=== PATIENT | female | born 1940 | race Caucasian/White ===

== ENCOUNTER 2020-03-21 07:38 | Outpatient (CLI) | payer MEDICARE, BC, SELFPAY ==
[2020-03-21 08:08] LABS: Hemoglobin 13.4 g/dL (11.5-15.3); Mean Corpuscular HGB Conc 31.2 g/dL (30.0-36.0); Mean Corpuscular Hemoglobin 26.9 pg (28.0-34.0); Mean Corpuscular Volume 86.2 fL (81-99); Mean Platelet Volume 10.7 fL (7.4-10.4); Platelet Count 231 10^3/cmm (130-400); Red Blood Count 4.99 10^6/uL (4.1-5.3); Red Cell Distribution Width 13.7 % (12.1-15.1); White Blood Count 4.5 10^3/uL (4.0-10.0)
[2020-03-21 08:46] LABS: Alanine Aminotransferase 18 U/L (0-33); Albumin Level 4.9 g/dL (3.5-5.2); Alkaline Phosphatase 72 IU/L (35-105); Anion Gap 13.1 (5-19); Aspartate Amino Transferase 30 U/L (0-32); Blood Urea Nitrogen 10 mg/dL (8-23); Calcium 10.1 mg/dL (8.5-10.5); Carbon Dioxide 27 mmol/L (22-29); Chloride 106 mmol/L (98-107); Chol HDL Ratio 2.69 mg/dL (0.0-4.40); Cholesterol 159 mg/dL (0-200); Globulin 2.3 g/dL (1.3-4.6); Glucose 100 mg/dL (65-115); HDL Cholesterol 59 mg/dL (60-100); LDL Cholesterol Calculated 81 mg/dL (50-129); Osmolality Calculated 290 mOsm/kg (285-295); Potassium 4.1 mmol/L (3.5-5.1); Sodium 142 mmol/L (136-145); Total Bilirubin 0.3 mg/dL (0.15-1.2); Total Protein 7.2 g/dL (6.6-8.7); Triglycerides 94 mg/dL (0-150); VLDL Cholestrol Calculation 19 mg/dL (0-30)
[2020-03-21 08:52] LABS: Absolute Neutrophil 2.3 10^3/cmm (1.4-6.5); Absolute Segmented Neutrophil 1.8 10/cmm (1.6-7.1); Band Neutrophils Absolute 0.5 10^3/cmm (0.0-1.2); Eosinophils 1 %; Lymphocytes 40 %; Monocytes Absolute 0.3 10^3/cmm (0.1-0.6); Platelet Estimate Normal (Normal); Segmented Neutrophils 41 %; Total Cells Counted 100 (0-100)
== END 2020-03-21 07:39 | disposition home or self-care (01) ==
LOC: LAB 07:44
PROVIDERS: PCP Family Medicine; Visit Provider Family Medicine
DX: E78.00 Pure hypercholesterolemia, unspecified (principal)
CPT/HCPCS: 36415; 80053; 80061; 84443; 85007; 85027

== ENCOUNTER 2020-04-21 15:23 | Outpatient (CLI) | payer MEDICARE, BC, SELFPAY ==
--- NOTE | 2020-04-21 | XR_ITS ---
WS: [id number] SCREENING DEXA SCAN [employer] CLINICAL INFORMATION: ASYMPTOMATIC MENOPAUSAL STATE COMPARISON: 018 FINDINGS: The L1-L4 bone mineral density measures 1.254 g/cm2. This corresponds to a T score score of 0.6 and Z score of 2.2. Left femoral neck bone mineral density measures 0.891. This corresponds to a T score of -0.9 and Z sc ore of 0.9. Left forearm bone mineral density 0.743 with a T score of -1.5 and a Z score 1.2 XR/XR DEXA axial skeleton* 29115 IMPRESSION: Osteopenia in the left forearm. Patient's FRAX calculated 10 year probability for major osteoporotic fracture i s 16.3 % and osteoporotic hip fracture is 4.0%.
== END 2020-04-21 15:24 | disposition home or self-care (01) ==
LOC: RADWPI 15:28
PROVIDERS: Family Provider Family Medicine; PCP Family Medicine; Visit Provider Family Medicine
DX: Z78.0 Asymptomatic menopausal state (principal); M85.832 Other specified disorders of bone density and structure, left forearm
CPT/HCPCS: 77080

== ENCOUNTER → 2020-04-23 14:31 | Outpatient (BNVA) | payer MEDICARE, BC, SELFPAY | PROVIDERS: Family Provider Family Medicine; PCP Family Medicine; Visit Provider Urology | DX: N30.20 Other chronic cystitis without hematuria (principal); N39.41 Urge incontinence | CPT/HCPCS: 81001 ==

== ENCOUNTER → 2020-12-24 12:42 | Outpatient (BNVA) | payer MEDICARE, BC, SELFPAY | PROVIDERS: Family Provider Family Medicine; PCP Family Medicine; Visit Provider Nurse Practitioner Family | DX: N30.20 Other chronic cystitis without hematuria (principal) | CPT/HCPCS: 81003 ==

== ENCOUNTER 2021-04-01 08:39 | Outpatient (CLI) | payer MEDICARE, BC, SELFPAY ==
[2021-04-01 09:30] LABS: Basophils # 0.1 10^3/uL (0.0-0.1); Basophils % 1.4 %; Eosinophils # 0.1 10^3/uL (0.0-0.8); Eosinophils % 2.2 %; Hemoglobin 13.3 g/dL (11.5-15.3); Lymphocytes # 1.2 10^3/uL (0.8-4.8); Lymphocytes % 33.4 %; Mean Corpuscular HGB Conc 30.9 g/dL (30.0-36.0); Mean Corpuscular Hemoglobin 26.4 pg (28.0-34.0); Mean Corpuscular Volume 85.5 fL (81-99); Mean Platelet Volume 10.9 fL (7.4-10.4); Monocytes # 0.3 10^3/uL (0.2-0.9); Monocytes % 9.3 %; Neutrophils # 1.95 10^3/uL (1.8-7.7); Neutrophils % 53.4 %; Nucleated Red Blood Cells % 0 %; Platelet Count 236 10^3/cmm (130-400); Red Blood Count 5.03 10^6/uL (4.1-5.3); Red Cell Distribution Width 13.8 % (12.1-15.1); White Blood Count 3.7 10^3/uL (4.0-10.0)
[2021-04-01 10:01] LABS: Alanine Aminotransferase 20 U/L (0-33); Albumin Level 4.6 g/dL (3.5-5.2); Alkaline Phosphatase 95 IU/L (35-105); Aspartate Amino Transferase 31 U/L (0-32); Blood Urea Nitrogen 9 mg/dL (8-23); Calcium 9.8 mg/dL (8.5-10.5); Carbon Dioxide 26 mmol/L (22-29); Chloride 108 mmol/L (98-107); Chol HDL Ratio 2.44 mg/dL (0.0-4.40); Cholesterol 151 mg/dL (0-200); Globulin 2.1 g/dL (1.3-4.6); Glucose 98 mg/dL (65-115); HDL Cholesterol 62 mg/dL (60-100); LDL Cholesterol Calculated 76 mg/dL (50-129); LDL HDL Ratio 1.23 RATIO (0.00-3.22); Osmolality Calculated 295 mOsm/kg (285-295); Sodium 143 mmol/L (136-145); Thyroid Stimulating Hormone 0.67 uIU/mL (0.27-4.20); Total Bilirubin 0.2 mg/dL (0.15-1.2); Total Protein 6.7 g/dL (6.6-8.7); Triglycerides 67 mg/dL (0-150)
== END 2021-04-01 08:40 | disposition home or self-care (01) ==
LOC: LAB 08:52
PROVIDERS: PCP Family Medicine; Visit Provider Family Medicine
DX: E78.00 Pure hypercholesterolemia, unspecified (principal); E03.9 Hypothyroidism, unspecified
CPT/HCPCS: 36415; 80053; 80061; 84443; 85025

== ENCOUNTER → 2021-05-22 10:02 | Outpatient (BNVA) | payer MEDICARE, BC, SELFPAY | PROVIDERS: PCP Family Medicine; Visit Provider Surgery | DX: Z01.812 Encounter for preprocedural laboratory examination (principal); Z20.822 Contact with and (suspected) exposure to COVID-19 | CPT/HCPCS: 87635 ==

== ENCOUNTER 2021-05-28 05:54 | Day surgery (SDC) | payer MEDICARE, BC, SELFPAY ==
[2021-05-27 12:11] VITALS: BMI 27.1
[2021-05-28] VITALS (11 sets, daily range): BP systolic 126–162; BP diastolic 58–89; PULSE 67–80; RESP 16–18; TEMP 36.7–36.8; O2SAT 94–97
[2021-05-28] MEDS: sodium chloride 0.9% 1,000 ML 30 ML IV (06:29)
--- NOTE | 2021-05-28 06:34 | ANES.PREANE2 ---
Pre-Anesthetic Assessment Pre-Anesthetic Assessment: Height/Weight: Height 1.63 m Weight 71.668 kg Temp Pulse Resp BP Pulse Ox 98.2 F 70 16 138/65 97 05/28/21 06:22 05/28/21 06:22 05/28/21 06:22 05/28/21 06:22 05/28/21 06:22 Preop Diagnosis: hernia Proposed Procedure: Operation Date: 05/28/21 07:15 Proposed Procedures p right Inguinal Hernia Repair w/ Mesh [id number] k40.90(Right) - Harshad Ramirez MD Familial anesthetic complications: ponv Was Beta Dayna taken within 24 hours: N/A Was Clonidine taken within 24 hours: N/A Last intake: Intake Last Liquid Date 05/27/21 Last Liquid Time 19:30 Last Solid Date 05/27/21 Last Solid Time 18:30 Social: Social History: No alcohol and No tobacco Comment: former smoker Exam: Pre-Anes Outpt Exam: alert, oriented x 3, clear to auscultation bilaterally and regular rate & rhythm Airway: Cervical ROM: WNL MP: 2 Dentition: False Metabolic: Metabolic: Hyperlipidemia and Thyroid Musc/skel: Musc/skel: OA/DJD Anesthetic Plan: ASA status: 2 Anesthesia: General Risk of > 500 ml blood loss (7ml/kg in children): No Meds/Allergies Current Medications: Current Medications Generic Name Dose Route Start Last Admin Trade Name Freq PRN Reason Stop Dose Admin Sodium Chloride 1,000 mls @ 30 ml s/hr 05/28/21 06:15 05/28/21 06:29 Sodium Chloride 0.9% IV 05/29/21 06:14 30 mls/hr .Q24H MARNI Administration PFSH Anesthesia PFSH: Medical History Chronic cystitis Urgency incontinence Surgical History H/O cataract extraction H/O dilation and curettage H/O knee surgery H/O shoulder surgery H/O: hysterectomy History of right hip replacement Hx of bladder repair surgery S/P appendectomy S/P cholecystectomy S/P tonsillectomy Family History Family/Other Adopted Mother , at age 26 Bowel obstruction Father No problems noted. Social History Smoking and tobacco status: former smoker Alcohol intake: current Alcohol intake frequency: holidays/special occasions only Alcohol type: wine Adopted: No Caregiver/support person: No Lives independently: Yes Marital status: / Current occupational status: retired History of recent travel: No Current gender identity: Female Data Anesthesia Cardiac Studies: No Data to Display
[2021-05-28] MEDS: scopolamine 1.5 Patch 1 PATCH TRANSDERMA (06:36)
--- NOTE | 2021-05-28 06:46 | W.PM.OPSUD ---
Surgery/Procedure H&P Update DATE OF PROCEDURE: May 28, 2021 DATE H&P PERFORMED: 05/05/21 H&P UPDATE INFORMATION: No changes to prior documentation PREOP DIAGNOSIS: Right inguinal hernia PLANNED PROCEDURE: Operation Date: 05/28/21 07:15 Proposed Procedures p right Inguinal Hernia Repair w/ Mesh [id number] k40.90(Right) - Harshad Ramirez MD
--- NOTE | 2021-05-28 07:46 | PM.OP ---
Operative Report Date of procedure: May 28, 2021 Pre-op Diagnosis: Right inguinal hernia. Post-op Diagnosis: Right indirect inguinal hernia. Procedure Done: Repair of right inguinal hernia with mesh. Pathology: none sent Surgeon: Harshad Ramirez Anesthesia: MAC Estimated blood loss (mL): 5 Complications: None. Condition: stable Disposition: same day Procedure: The patient was brought to the operating room and was placed in a supine position on the operating room table. A monitored anesthetic was induced. The right inguinal region was prepped and draped in a sterile fashion. A combination of 1% lidocaine and 0.5% bupivacaine with 1-200,000 parts epinephrine was used for local anesthesia throughout the procedure. A transverse incision was carried out above the level of the pubic tubercle. Cautery was used to divide the subcutaneous tissue down to the external oblique aponeurosis which was incised in parallel with its fibers over the inguinal canal. An indirect hernia was identified that had obliterated almost the entire inguinal canal floor all the way down to the tubercle. The hernia sac and contents were carefully freed from the surrounding tissue and the hernia sac was reduced. An extra-large mesh plug was used to hold the hernia sac in a reduced position and was held in place with a sutures of 0 Prolene that were used to connect the conjoined area medially to the reflecting edge of Poupart's ligament laterally all the way down to the tubercle, essentially recreating the inguinal canal floor. The onlay patch was anchored at the tubercle with a suture of 0 Prolene and was laid along the new inguinal canal floor. The external oblique aponeurosis was closed over the top of the mesh using a running suture of 3-0 Vicryl. The wound was irrigated with saline. The subcutaneous tissue was brought together with a simple suture of 3-0 Vicryl and the skin was approximated using a running subcuticular suture of 3-0 Vicryl. Benzoin and Steri-Strips were placed over the incision and a sterile bandage followed. The patient was taken to the recovery area in stable condition postoperatively.
[2021-05-28] MEDS: HYDROcodone-acetaminophen 5-325 mg Tablet 1 TAB PO (08:43)
--- NOTE | 2021-05-28 13:39 | ANE.PACU2 ---
Inpatient post-anesthesia follow up: Airway intact: Yes Vital signs: Temperature 98.1 F Pulse Rate 72 Respiratory Rate 18 Blood Pressure 151/68 Pulse Oximetry 94 Oxygen Delivery Me thod Room Air Oxygen Flow Rate Fraction of Inspir ed Oxygen Hydration adequate: Yes Nausea and vomiting: No Pain level: 2 Mental status: Baseline
== END 2021-05-28 09:13 | disposition home or self-care (01) ==
PROVIDERS: PCP Family Medicine; Visit Provider Surgery
PROC: (CPT 49505; principal; 2021-05-28 07:15)
DX: K40.90 Unilateral inguinal hernia, without obstruction or gangrene, not specified as recurrent (principal); E78.5 Hyperlipidemia, unspecified; Z87.891 Personal history of nicotine dependence; Z79.82 Long term (current) use of aspirin
CPT/HCPCS: 49505; J0690; J2405; J2704; J3010; J3490; J7030

== ENCOUNTER → 2021-06-24 14:43 | Outpatient (BNVA) | payer MEDICARE, BC, SELFPAY | PROVIDERS: PCP Family Medicine; Visit Provider Nurse Practitioner Family | DX: N30.20 Other chronic cystitis without hematuria (principal) | CPT/HCPCS: 81003; 87086 ==

== ENCOUNTER → 2021-07-16 13:25 | Outpatient (BNVA) | payer MEDICARE, BC, SELFPAY | PROVIDERS: PCP Family Medicine; Visit Provider Nurse Practitioner Family | DX: N30.20 Other chronic cystitis without hematuria (principal); N39.41 Urge incontinence | CPT/HCPCS: 81003 ==

== ENCOUNTER → 2021-08-06 13:18 | Outpatient (BNVA) | payer MEDICARE, BC, SELFPAY | PROVIDERS: PCP Family Medicine; Visit Provider Nurse Practitioner Family | DX: N30.20 Other chronic cystitis without hematuria (principal) | CPT/HCPCS: 81003 ==

== ENCOUNTER → 2021-12-17 12:35 | Outpatient (BNVA) | payer MEDICARE, BC, SELFPAY | PROVIDERS: PCP Family Medicine; Visit Provider Urology | DX: N30.20 Other chronic cystitis without hematuria (principal); N39.41 Urge incontinence | CPT/HCPCS: 81003 ==

== ENCOUNTER 2022-01-05 14:19 | Outpatient (CLI) | payer MEDICARE, BC, SELFPAY ==
--- NOTE | 2022-01-05 14:28 | MM_ITS ---
WS: [id number] VIEWS: MLO and CC views both breasts. 3D digital tomosynthesis is also included in this exam. Comparison made with prior exam of 01/12/2016. Findings: There was no sign of mass, architectural distortion or suspicious calcification in either breast. He terogeneously dense MM/[place] [id number] Impression: BI-RADS: 2-Benign FOLLOW-UP: 1 Year Follow-up This mammogram was also analyzed by the Computer Aided Detection System [employer]2 [employer]ag [employer].
== END 2022-01-05 14:20 | disposition home or self-care (01) ==
LOC: RADSHAW 14:24
PROVIDERS: PCP Family Medicine; Visit Provider Family Medicine
DX: Z12.31 Encounter for screening mammogram for malignant neoplasm of breast (principal)
CPT/HCPCS: 77063; 77067

== ENCOUNTER 2022-04-02 07:29 | Outpatient (CLI) | payer MEDICARE, BC, SELFPAY ==
[2022-04-02 07:45] LABS: Basophils # 0.1 10^3/uL (0.0-0.1); Eosinophils # 0.1 10^3/uL (0.0-0.8); Eosinophils % 2.1 %; Hematocrit 41.7 % (37.0-47.0); Hemoglobin 13.7 g/dL (11.5-15.3); Lymphocytes % 41.3 %; Mean Corpuscular HGB Conc 32.9 g/dL (30.0-36.0); Mean Corpuscular Hemoglobin 27.3 pg (28.0-34.0); Mean Corpuscular Volume 83.1 fl (81-99); Mean Platelet Volume 10.6 fL (7.4-10.4); Monocytes # 0.4 10^3/uL (0.2-0.9); Monocytes % 8.6 %; Neutrophils # 2.23 10^3/uL (1.8-7.7); Neutrophils % 46.8 %; Nucleated Red Blood Cells % 0 %; Platelet Count 235 10^3/cmm (130-400); Red Blood Count 5.02 10^6/uL (4.1-5.3); Red Cell Distribution Width 13.8 % (12.1-15.1); White Blood Count 4.8 10^3/uL (4.0-10.0)
[2022-04-02 08:17] LABS: Alanine Aminotransferase 20 U/L (0-33); Albumin Level 4.6 g/dL (3.5-5.2); Alkaline Phosphatase 85 IU/L (35-105); Anion Gap 14.1 (5-19); Aspartate Amino Transferase 28 U/L (0-32); Blood Urea Nitrogen 15 mg/dL (8-23); Calcium 9.3 mg/dL (8.5-10.5); Carbon Dioxide 25 mmol/L (22-29); Chloride 106 mmol/L (98-107); Chol HDL Ratio 2.77 mg/dL (0.0-4.40); Cholesterol 155 mg/dL (0-200); Globulin 2.5 g/dL (1.3-4.6); Glucose 94 mg/dL (65-115); HDL Cholesterol 56 mg/dL (60-100); LDL Cholesterol Calculated 76 mg/dL (50-129); Osmolality Calculated 293 mOsm/kg (285-295); Potassium 4.1 mmol/L (3.5-5.1); Sodium 141 mmol/L (136-145); Thyroid Stimulating Hormone 1.06 uIU/mL (0.27-4.20); Total Bilirubin 0.3 mg/dL (0.15-1.2); Total Protein 7.1 g/dL (6.6-8.7); Triglycerides 114 mg/dL (0-150); VLDL Cholestrol Calculation 23 mg/dL (0-30)
== END 2022-04-02 07:30 | disposition home or self-care (01) ==
LOC: LAB 07:32
PROVIDERS: PCP Family Medicine; Visit Provider Family Medicine
DX: E03.9 Hypothyroidism, unspecified (principal); D64.9 Anemia, unspecified; E78.00 Pure hypercholesterolemia, unspecified
CPT/HCPCS: 36415; 80053; 80061; 84443; 85025

== ENCOUNTER 2022-05-31 13:05 | Outpatient (CLI) | payer MEDICARE, BC, SELFPAY ==
--- NOTE | 2022-05-31 13:30 | XR_ITS ---
WS: [id number] DEXA (DUAL ENERGY X-RAY ABSORPTIOMETRY) Bone mineral density was performed using a [employer] machine. HISTORY: ASYMPTOMATIC MENOPAUSAL STATE COMPARISON: 04/21/2020 Lumbar spine BMD (L1-L4): 1.173 g/cm2 T score: -0.1 Z score: 1.6 Total hip BMD: Left: 0.852 (g/cm2). T score: -1.2 Z score: 0.7 Left forearm BMD: 0.662 g/cm2. T score: -2.4 Z score: 0.4 Reverse S-shaped scoliosis lumbar spine. 10 year probability of a major osteoporotic fracture is 19%. Compared to the prior study from 04/21/2020. Lumbar spine bone mineral density has decreased by 6.5%. LEFT hip bone mineral density has decreased by 4.4%. LEFT forearm bone mineral density has decreased by 10.9%. XR/XR DEXA axial skeleton* [id number] IMPRESSION: OSTEOPENIA based upon the WHO classification for females. Significant decrease in bone mineral density within the lumbar spine, LEFT hip and LEFT forearm since the prior study.
== END 2022-05-31 13:06 | disposition home or self-care (01) ==
LOC: RAD 13:06
PROVIDERS: PCP Family Medicine; Visit Provider Family Medicine
DX: Z78.0 Asymptomatic menopausal state (principal); M85.80 Other specified disorders of bone density and structure, unspecified site
CPT/HCPCS: 77080

== ENCOUNTER → 2022-06-30 09:52 | Outpatient (BNVA) | payer MEDICARE, BC, SELFPAY | PROVIDERS: PCP Family Medicine; Visit Provider Specialist | DX: M25.562 Pain in left knee (principal); M25.552 Pain in left hip; G89.29 Other chronic pain | CPT/HCPCS: 73502; 99213 ==

== ENCOUNTER 2022-09-07 08:09 | Outpatient (CLI) | payer MEDICARE, BC, SELFPAY ==
--- NOTE | 2022-09-07 09:30 | NM_ITS ---
WS: [id number] NUCLEAR MEDICINE BONE SCAN 3 PHASE Radiopharmaceutical: 22.5 Tc-99m MDP mCi IV Injection site: LEFT antecubital Postinjection imaging delay: 3 hr CLINICAL INFORMATION: left knee pain COMPARISON: Radiographs September 07, 2022 FINDINGS: Prior postoperative changes RIGHT REJI. Bilateral total knee arthroplasties. Prior RIGHT rev ersed shoulder arthroplasty. Lumbar curve convex LEFT. Normal blood flow and blood pool activity LEFT knee. Small amount of increased blood flow and blood p ool periprosthetic activity RIGHT knee. Small amount of increased periprosthetic activity about both TKAs on the delayed bone images in a symmetric fashion. No evidence of osteomyelitis. Degenerative type uptake involving the LEFT greater than RIGHT AC joints. NM/NM bone 3 phase [id number] IMPRESSION: 1. No evidence of osteomyelitis or significant loosening LEFT knee. 2. Small amount of nonspecific increased periprosthetic blood flow and blood p ool activity RIGHT knee with normal delayed imaging likely due to bony remodeli ng from prior TKA. 3. No other remarkable findings.
--- NOTE | 2022-09-07 11:41 | XR_ITS ---
WS: [id number] XR knee LT 3V* [id number] REASON FOR EXAM: BONE SCAN COMPARISON FINDINGS: Nonweightbearing. Total left knee arthroplasty. Relative lucency underlying the medial table of the tibial component anteriorly. Similar lucency seen adjacent to the medial aspect of the femoral component anteriorly. These findings appear unchanged c ompared to 08/20/2019. No fracture or periosteal reaction. XR/XR knee LT 3V* [id number] IMPRESSION: Stable appearing total left knee arthroplasty as above.
--- NOTE | 2022-09-07 11:41 | XR_ITS ---
WS: [id number] XR knee RT 3V* [id number] REASON FOR EXAM: BONE SCAN COMPARISON FINDINGS: Nonweightbearing. Total right knee arthroplasty. Small areas of lucency in the femoral condyles adjacent to the femoral prosthetic component. Similar finding is underlying the medial and lateral table of the tibial component. No change in these findin gs compared to the previous examination of 08/20/2019. No fracture or periosteal reaction. XR/XR knee RT 3V* [id number] IMPRESSION: Stable appearing total right knee arthroplasty.
== END 2022-09-07 08:10 | disposition home or self-care (01) ==
LOC: RAD 08:09
PROVIDERS: PCP Family Medicine; Visit Provider Specialist
DX: M25.562 Pain in left knee (principal); Z98.890 Other specified postprocedural states; Z96.653 Presence of artificial knee joint, bilateral
CPT/HCPCS: 73562; 78315; A9561

== ENCOUNTER 2022-09-13 12:14 | Emergency (ER) | payer MEDICARE, BC, SELFPAY ==
[2022-09-13 12:26] VITALS: BP 182/102; PULSE 100; RESP 16; TEMP 36.4; O2SAT 98
--- NOTE | 2022-09-13 14:26 | PC.NURSE ---
WHILE WITH PT IN [facility]OBBY PT IS IN NAD.
[2022-09-13 14:27] VITALS: PULSE 83; O2SAT 99
[2022-09-13 16:25] VITALS: BP 182/102; PULSE 83; RESP 16; TEMP 36.4; O2SAT 99
[2022-09-13 16:32] LABS: Basophils # 0.1 10^3/uL (0.0-0.1); Eosinophils # 0.2 10^3/uL (0.0-0.8); Eosinophils % 2.8 %; Hematocrit 40.7 % (37.0-47.0); Hemoglobin 13.2 g/dL (11.5-15.3); Lymphocytes # 2.1 10^3/uL (0.8-4.8); Lymphocytes % 25.9 %; Mean Corpuscular HGB Conc 32.4 g/dL (30.0-36.0); Mean Corpuscular Hemoglobin 27.4 pg (28.0-34.0); Mean Corpuscular Volume 84.4 fl (81-99); Mean Platelet Volume 10.4 fL (7.4-10.4); Monocytes # 0.5 10^3/uL (0.2-0.9); Monocytes % 6.4 %; Neutrophils # 5.18 10^3/uL (1.8-7.7); Neutrophils % 63.5 %; Nucleated Red Blood Cells % 0 %; Platelet Count 273 10^3/cmm (130-400); Red Blood Count 4.82 10^6/uL (4.1-5.3); Red Cell Distribution Width 13.3 % (12.1-15.1); White Blood Count 8.2 10^3/uL (4.0-10.0)
--- NOTE | 2022-09-13 16:34 | W.ED.GENADLT ---
HPI - General Adult General: Chief complaint: General Medical Stated complaint: Prolapse is getting biger and bleeding Time Seen by Provider: 09/13/22 15:59 Source: patient Mode of arrival: ambulatory History of Present Illness: 82-year-old female presents emergency room with complaint of rectal prolapse she states being becoming more more problem some states its bleeding and she has been unable to manage it is causing more severe pain. She has been seen by colorectal surgery in [place] and then referred from there to [place] she has a follow-up appointment later this week in [place]. She had problems with constipation and started taking milk of magnesia relieved that this is progressively worsened. She called the doctor's office it was a told to go to the emergency room she was unable to tolerate symptoms. Onset (ago): day(s) Location: pelvis (Rectum) Severity: moderate Relieving factors: none Exacerbating factors: none Associated symptoms: Deny chest pain, confusion, cough, diaphoresis, decreased appetite, dyspnea, fevers/chills, headache(s), malaise, nausea, rash, palpitations, seizures, short of breath, syncope, vomiting or weakness Treatments prior to arrival: none Review of Systems Const: Denies: fever(s), chills, malaise or diaphoresis ENMT: Denies: throat pain, ear or mastoid pain, nasal discharge or nasal congestion Card: Denies: chest pain, palpitations or syncope Resp: Denies: dyspnea GI: Reports: constipation, GI cramping and hematochezia; Denies: abdominal pain, nausea, vomiting, diarrhea or bloating : Denies: flank pain, difficulty voiding, dysuria, urinary frequency or urinary urgency Skin/Breast: Denies: rash or pruritus Neuro: Denies: headache(s) or confusion PFSH ED PFSH: Medical History Chronic cystitis Rectocele Urgency incontinence Surgical History H/O cataract extraction H/O dilation and curettage H/O knee surgery H/O shoulder surgery H/O: hysterectomy History of bilateral knee replacement History of right hip replacement Hx of bladder repair surgery S/P appendectomy S/P cholecystectomy S/P tonsillectomy S/P vaginal hysterectomy Family History Family/Other Adopted Mother , at age 26 Bowel obstruction Father No problems noted. Social History Smoking and tobacco status: former smoker Alcohol intake: current Alcohol intake frequency: holidays/special occasions only Alcohol type: wine Adopted: No Caregiver/support person: No Lives independently: Yes Marital status: / Current occupational status: retired History of recent travel: No Current gender identity: Female Physical Exam Const: GENERAL APPEARANCE: cooperative and comfortable ORIENTATION/CONSCIOUSNESS: Yes awake, Yes oriented to person, Yes oriented to place and Yes oriented to time HENMT: COMMON NORMALS: normocephalic, atraumatic and hearing grossly normal bilaterally HEAD & SCALP: normocephalic and atraumatic Resp: COMMON NORMALS: normal respiratory effort, No retractions, No use of accessory muscles and clear to auscultation bilaterally AUSCULTATION: clear to auscultation bilaterally Cardio: COMMON NORMALS: regular rate, regular rhythm and No murmurs present (Cardio) RATE: regular rate RHYTHM: regular rhythm GI: COMMON NORMALS: Soft to palpation and No hepatosplenomegaly present AUSCULTATION: Yes normoactive bowel sounds PALPATION: Yes Soft to palpation, No Tenderness to palpation present (GI), No Guarding due to palpation present (GI) and Yes No hepatosplenomegaly present Extremity: COMMON NORMALS: normal to inspection, capillary refill normal, no clubbing, cyanosis or edema, no calf tenderness and no pedal edema Neuro: SENSORIUM/ORIENTATION: Yes oriented to person, Yes oriented to place and Yes oriented to time Skin: COMMON NORMALS: no rashes or lesions noted GENERAL SKIN EXAM: no rashes or lesions noted Course Vital Signs: Vital signs: Vital Signs Temperature 97.6 F 09/13/22 16:25 Pulse Rate 83 09/13/22 16:25 Respiratory Rate 16 09/13/22 16:25 Blood Pressure 182/102 09/13/22 16:25 Pulse Oximetry 99 09/13/22 16:25 Oxygen Delivery Me thod 09/13/22 16:25 MDM - General Adult Medical Decision Making On exam there is no active prolapse. She states he gets worse when she stands up. She has been aggressively trying to clean the prolapse recommend against that she could use sitz bath's which would be helpful and comforting. She can apply a topical emollient such as Vaseline if she is unable to reduce it. Recommend against her using milk of magnesia every day instead go to using MiraLAX daily as part of a bowel regimen program. Should keep her appointment in [place] with colorectal surgery as planned or an upcoming appointment is a consultation. At this point she does not have anything that would require emergent transfer there is no evidence of ischemia and is not actively bleeding. Medical Records I reviewed the patient's medical records. Lab Data I reviewed the patient's lab results. 09/13/22 16:20 09/13/22 16:20 Laboratory Results WBC 8.2 10^3/uL (4.0-10.0) 09/13/22 16:20 RBC 4.82 10^6/uL (4.1-5.3) 09/13/22 16:20 Hgb 13.2 g/dL (11.5-15.3) 09/13/22 16:20 Hct 40.7 % (37.0-47.0) 09/13/22 16:20 MCV 84.4 fl (81-99) 09/13/22 16:20 MCH 27.4 pg (28.0-34.0) L 09/13/22 16:20 MCHC 32.4 g/dL (30.0-36.0) 09/13/22 16:20 RDW 13.3 % (12.1-15.1) 09/13/22 16:20 Plt Count 273 10^3/cmm (130-400) 09/13/22 16:20 MPV 10.4 fL (7.4-10.4) 09/13/22 16:20 Neut % (Auto) 63.5 % 09/13/22 16:20 Lymph % (Auto) 25.9 % 09/13/22 16:20 Hanson % (Auto) 6.4 % 09/13/22 16:20 Eos % (Auto) 2.8 % 09/13/22 16:20 Baso % (Auto) 1.0 % 09/13/22 16:20 Neut # (Auto) 5.18 10^3/uL (1.8-7.7) 09/13/22 16:20 Lymph # (Auto) 2.1 10^3/uL (0.8-4.8) 09/13/22 16:20 Hanson # (Auto) 0.5 10^3/uL (0.2-0.9) 09/13/22 16:20 Eos # (Auto) 0.2 10^3/uL (0.0-0.8) 09/13/22 16:20 Baso # (Auto) 0.1 10^3/uL (0.0-0.1) 09/13/22 16:20 Nucleated RBC % (auto) 0 % 09/13/22 16:20 Nucleated RBCs # 0.0 /100WBC 09/13/22 16:20 Discharge Plan Discharge Patient Disposition: Home Clinical Impression: Rectal prolapse Condition: Stable Prescriptions: No Action clobetasol 0.05 % ointment 1 applic topical BID PRN (Reason: Itching) Rx Instructions: to affected area on back no more than 3 wks/mo prn itching duloxetine 60 mg capsule,delayed release(DR/EC) 60 mg PO DAILY naproxen 500 mg tablet,delayed release (DR/EC) 500 mg PO BID topiramate [Topamax] 50 mg tablet 50 mg PO BID lovastatin 40 mg tablet 40 mg PO BEDTIME furosemide 20 mg tablet 20 mg PO DAILY docusate sodium [Stool Softener] 100 mg capsule 100 mg PO BID cod liver oil Capsule 1 cap PO DAILY prenat.vits,alejandrina,[id number] Tablet 1 tab PO DAILY cholecalciferol (vitamin D3) 2,000 unit tablet 2,000 unit PO DAILY aspirin [Adult Low Dose Aspirin] 81 mg tablet,delayed release (DR/EC) 81 mg PO DAILY biotin 1 mg capsule 1 mg PO TID ascorbic acid (vitamin C) 500 mg capsule 1,000 mg PO DAILY levothyroxine [Euthyrox] 125 mcg Tablet 125 mcg PO DAILY amlodipine 5 mg tablet 5 mg PO DAILY Milk of Magnesia 400 mg/5 mL Suspension 30 ml PO DAILY PRN (Reason: Constipation) Calcium 500 500 mg calcium (1,250 mg) Tablet 500 mg PO DAILY cephalexin 500 mg capsule 500 mg PO TID PRN (Reason: UTI) Preparation H Suppository 1 supp MD DAILY PRN (Reason: Hemorrhoids) fluticasone propionate 50 mcg/actuation spray,suspension 2 spray INTRANASAL DAILY PRN (Reason: Allergy Symptoms) Discharge Orders: Discharge ED (Routine); Ordered 09/13/22 Ordered By: Cortez Clark Referrals: Estefany Manzano MD [Primary Care Provider] - Discharge Diet: As Directed Discharge Activity: Resume usual activity Patient Instructions: Opioid Safety, Pain Management Activity Restrictions/Additional Instructions: You were seen today for rectal prolapse/rectocele. It was not displaced ischemic or unreducible at the time you are seen there is no active bleeding your hemoglobin and white count were normal recommend to follow-up with [facility] as planned. Also recommend that you use MiraLAX regularly instead of using daily doses of milk of magnesia. Coding Level of Care Code ED Bone Char Puller for Chg Fwd Exam Detailed
[2022-09-13 17:16] LABS: Add Urine Microscopic? YES; Bilirubin Urine Neg (Negative); Blood Urine Neg (Negative); Glucose Urine UA Norm (Normal); Ketones Urine 1+ (Negative); Leukocyte Esterase Urine Trace (Negative); Nitrate Urine Negative (Negative); Protein Urine Neg (Negative); Specific Gravity, Urine 1.015 (1.005-1.030); Urine Appearance Clear (CLEAR); Urine Color Yellow (Yellow); Urobilinogen Urine Norm (Negative); pH Urine 6 (5-7)
[2022-09-13 17:17] LABS: Add Urine Culture? No; Bacteria Urine TRACE /hpf; RBC Urine 0-4 /hpf (0-2); Squamous Epithelial Cell Urine 0-4 /hpf (0-5); WBC Urine 0-4 /hpf (0-5)
[2022-09-13 17:40] LABS: Alanine Aminotransferase 15 U/L (0-33); Alkaline Phosphatase 79 U/L (35-105); Anion Gap 15.3 (5-19); Aspartate Amino Transferase 25 U/L (0-32); Blood Urea Nitrogen 12 mg/dL (8-23); Calcium 9.6 mg/dL (8.5-10.5); Carbon Dioxide 23 mmol/L (22-29); Chloride 99 mmol/L (98-107); Creatinine Clr Calc Pharmacy 57.4585; Globulin 2.9 g/dL (1.3-4.6); Glucose 99 mg/dL (65-115); Osmolality Calculated 278 mOsm/kg (285-295); Potassium 3.3 mmol/L (3.5-5.1); Sodium 134 mmol/L (136-145); Total Bilirubin 0.3 mg/dL (0.15-1.2); Total Protein 6.9 g/dL (6.6-8.7)
== END 2022-09-13 17:20 | disposition home or self-care (01) ==
PROVIDERS: Emergency Provider Family Medicine; PCP Family Medicine
DX: K62.3 Rectal prolapse (principal); Z79.82 Long term (current) use of aspirin; Z87.891 Personal history of nicotine dependence
CPT/HCPCS: 80053; 81001; 85025; 99283

== ENCOUNTER 2022-09-23 11:26 | Emergency (ER) | payer MEDICARE, BC, SELFPAY ==
[2022-09-23] VITALS (84 sets, daily range): BP systolic 108–172; BP diastolic 53–102; PULSE 86–105; RESP 16–23; TEMP 36.5; O2SAT 83–100; BMI 28.9
--- NOTE | 2022-09-23 11:30 | W.ED.GENADLT ---
HPI - General Adult General: Chief complaint: GI Bleed Stated complaint: rectal bleeding Time Seen by Provider: 09/23/22 11:30 History of Present Illness: Ms. Palmer is an 82-year-old lady with history of pelvic floor failure and rectal prolapse presenting to the emergency department due to recurrent prolapse with bleeding. She was seen recently in the emergency department and transition from Milk of Magnesia to MiraLAX. Since that time she has noted some more liquid stool. She has had more frequent bowel movements and this morning reports prolapse and blood identified on wet wipes and toilet paper when cleaning herself. This is similar to prior episodes. She denies associated abdominal pain or other changes in health. Intensity symptoms mild to moderate. Course has persisted intermittently. No other specific changes in health, exacerbating, or alleviating factors identified. Apparently her appointment with [facility] is not until the of this month. Onset (ago): hour(s) Location: genitals Severity: mild Pain Consistency: intermittent Exacerbating factors: other Review of Systems General: Reports: 10 or more systems reviewed and unremarkable except in HPI and below PFSH ED PFSH: Medical History Chronic cystitis Rectocele Urgency incontinence Surgical History H/O cataract extraction H/O dilation and curettage H/O knee surgery H/O shoulder surgery H/O: hysterectomy History of bilateral knee replacement History of right hip replacement Hx of bladder repair surgery S/P appendectomy S/P cholecystectomy S/P tonsillectomy S/P vaginal hysterectomy Family History Family/Other Adopted Mother , at age 26 Bowel obstruction Father No problems noted. Social History Smoking and tobacco status: former smoker Alcohol intake: current Alcohol intake frequency: holidays/special occasions only Alcohol type: wine Adopted: No Caregiver/support person: No Lives independently: Yes Marital status: / Current occupational status: retired History of recent travel: No Current gender identity: Female Physical Exam Const: COMMON NORMALS: alert GENERAL APPEARANCE: cooperative and well developed HENMT: COMMON NORMALS: normocephalic and atraumatic HEAD & SCALP: normocephalic and atraumatic Eye: COMMON NORMALS: conjunctivae normal CONJUNCTIVA: Yes conjunctivae normal SCLERA: sclerae normal Neck/C-Spine: COMMON NORMALS: supple GENERAL: Yes trachea midline Resp: COMMON NORMALS: normal respiratory effort EFFORT & INSPECTION: Yes able to speak in complete sentences Cardio: COMMON NORMALS: regular rate and regular rhythm RATE: regular rate RHYTHM: regular rhythm GI: COMMON NORMALS: Soft to palpation PALPATION: Yes Soft to palpation and No Tenderness to palpation present (GI) OTHER: Rectal exam performed with director of parks and recreation present. There is no evidence of rectal prolapse, scant amount of dark stool and scant amount of dried blood on brief. No abnormality other than lax muscle tone on rectal exam. No mariangel blood on glove or active bleeding identified. Extremity: GENERAL: Yes normal exam except as noted and No edema Neuro: COMMON NORMALS: moves all extremities SENSORIUM/ORIENTATION: Yes alert and No Orientation impaired Psych: COMMON NORMALS: mental status grossly normal and Normal thought process present THOUGHT PROCESS: Normal thought process present Course Vital Signs: Vital signs: Vital Signs Temperature 97.7 F 09/23/22 11:28 Pulse Rate 86 09/23/22 18:38 Respiratory Rate 16 09/23/22 18:38 Blood Pressure 162/75 09/23/22 18:38 Pulse Oximetry 95 09/23/22 18:38 Oxygen Delivery Me thod 09/23/22 11:28 [facility] - General Adult Medical Decision Making 82-year-old lady with history of known rectal prolapse presenting due to recurrent prolapse with bleeding. Patient has exam as above with no prolapse identified on rectal exam. No active bleeding identified either. Labs notable for normal hemoglobin, lactic acid is normal. CT abdomen pelvis likely shows intussusception. Findings discussed with patient surgical team in [place] and there is no dictation for transfer at this time. Patient's been able to ambulate without recurrence of prolapse and has had normal bowel movements without additional bleeding during ED care. Plan to continue outpatient follow-up for rectal prolapse requiring multidisciplinary team for surgical repair. The results of ED evaluation were discussed with the patient including prescriptions and/or symptomatic cares (if applicable) including appropriate and responsible use, followup plan, and return precautions. The patient verbalized understanding and felt safe for discharge. Medical Records I reviewed the patient's medical records. Lab Data I reviewed the patient's lab results. 09/23/22 11:30 Radiology Impressions Abdomen/Pelvis CT 09/23/22 11:46 IMPRESSION: 1. Diffuse thickening of the rectum extending to the rectoanal junction with soft tissue thickening most compatible with rectal prolapse. Recommend interval follow-up with sigmoidoscopy or colonoscopy to exclude intraluminal or lesion mass. 2. No evidence of high-grade obstruction. Mild LEFT colon and sigmoid colon constipation. 3. No free air or drainable fluid collections. 4. Prior cholecystectomy and hysterectomy. 5. No other acute findings Notified Luis A Bach MD at 09/23/2022 1:08 PM. Laboratory Results WBC 6.7 10^3/uL (4.0-10.0) 09/23/22 14:39 Corrected WBC Cancelled 09/23/22 12:15 RBC 5.03 10^6/uL (4.1-5.3) 09/23/22 14:39 Hgb 13.5 g/dL (11.5-15.3) 09/23/22 14:39 Hct 42.2 % (37.0-47.0) 09/23/22 14:39 MCV 83.9 fl (81-99) 09/23/22 14:39 MCH 26.8 pg (28.0-34.0) L 09/23/22 14:39 MCHC 32.0 g/dL (30.0-36.0) 09/23/22 14:39 RDW 13.4 % (12.1-15.1) 09/23/22 14:39 Plt Count 279 10^3/cmm (130-400) 09/23/22 14:39 MPV 10.6 fL (7.4-10.4) H 09/23/22 14:39 Gran % Cancelled 09/23/22 12:15 Neut % (Auto) 63.6 % 09/23/22 14:39 Lymph % (Auto) 25.5 % 09/23/22 14:39 [place] % (Auto) 6.4 % 09/23/22 14:39 Eos % (Auto) 3.1 % 09/23/22 14:39 Baso % (Auto) 1.3 % 09/23/22 14:39 Neut # (Auto) 4.25 10^3/uL (1.8-7.7) 09/23/22 14:39 Lymph # (Auto) 1.7 10^3/uL (0.8-4.8) 09/23/22 14:39 [place] # (Auto) 0.4 10^3/uL (0.2-0.9) 09/23/22 14:39 Eos # (Auto) 0.2 10^3/uL (0.0-0.8) 09/23/22 14:39 Baso # (Auto) 0.1 10^3/uL (0.0-0.1) 09/23/22 14:39 Absolute Gran (auto) Cancelled 09/23/22 12:15 Nucleated RBC % (auto) 0 % 09/23/22 14:39 Nucleated RBCs # 0.0 /100WBC 09/23/22 14:39 Lactic Acid 1.2 mmol/L (0.5-2.2) 09/23/22 14:39 Discharge Plan Discharge Patient Disposition: Home Clinical Impression: Rectal prolapse Condition: Stable Prescriptions: No Action clobetasol 0.05 % ointment 1 applic topical BID PRN (Reason: Itching) Rx Instructions: to affected area on back no more than 3 wks/mo prn itching duloxetine 60 mg capsule,delayed release(DR/EC) 60 mg PO DAILY naproxen 500 mg tablet,delayed release (DR/EC) 500 mg PO BID topiramate [Topamax] 50 mg tablet 50 mg PO BID lovastatin 40 mg tablet 40 mg PO BEDTIME furosemide 20 mg tablet 20 mg PO DAILY docusate sodium [Stool Softener] 100 mg capsule 100 mg PO BID cod liver oil Capsule 1 cap PO DAILY prenat.vits,alejandrina,qgk-wheo-qygim Tablet 1 tab PO DAILY cholecalciferol (vitamin D3) 2,000 unit tablet 2,000 unit PO DAILY aspirin [Adult Low Dose Aspirin] 81 mg tablet,delayed release (DR/EC) 81 mg PO DAILY biotin 1 mg capsule 1 mg PO TID ascorbic acid (vitamin C) 500 mg capsule 1,000 mg PO DAILY levothyroxine [Euthyrox] 125 mcg Tablet 125 mcg PO DAILY amlodipine 5 mg tablet 5 mg PO DAILY magnesium hydroxide [Milk of Magnesia] 400 mg/5 mL Suspension 30 ml PO DAILY PRN (Reason: Constipation) calcium carbonate [Calcium 500] 500 mg calcium (1,250 mg) Tablet 500 mg PO DAILY cephalexin 500 mg capsule 500 mg PO TID PRN (Reason: UTI) fluticasone propionate 50 mcg/actuation spray,suspension 2 spray INTRANASAL DAILY PRN (Reason: Allergy Symptoms) losartan 25 mg Tablet 25 mg PO DAILY Miralax 17 gram/dose Powder 17 g PO DAILY Discharge Orders: Discharge ED (Routine); Ordered 09/23/22 Ordered By: Luis A Bach Referrals: Estefany Manzano MD [Primary Care Provider] - Discharge Diet: Usual diet Discharge Activity: Increase activity as tolerated Patient Instructions: Rectal Prolapse (ED) Activity Restrictions/Additional Instructions: Thank you for visiting the emergency department. You were seen and evaluated for rectal prolapse. Based on ED evaluation and in discussion with the colorectal surgery team at [facility] you do not require inpatient management or transfer. Please continue your medication regimen and previously prescribed treatments. Please follow-up with your [facility] appointments as scheduled. Return to the emergency department for anything that you are concerned about a feel needs emergency department evaluation Coding Level of Care Code ED Mixing Engineer for Chg Fwd Exam Comprehensive
--- NOTE | 2022-09-23 11:46 | CT_ITS ---
WS: [id number] CT ABDOMEN PELVIS TECHNIQUE: Contrast-enhanced CT of the abdomen and pelvis with coronal and sagittal reformatted image s. CLINICAL INFORMATION: GI bleed, reccurrent ?rectal prolapse COMPARISON: None. DLP: 444.[address] scans at [facility] use at least one of these dose optimization techniques: automated e xposure control; mA and/or kV adjustment per patient size (includes targeted exams where dose is matc hed to clinical indication); or iterative reconstruction. FINDINGS: Diffuse soft tissue thickening involving the rectum and rectoanal junction likely due to rectal prola pse considering patient history. Associated submucosal enhancement with thickening of the rectum whic h appears prolapsed into the anal junction. No evidence of free air or drainable fluid collection. No evidence of high-grade obstruction. Recommend follow-up with sigmoidoscopy or colonoscopy to exclude intraluminal mass. Lung bases are well aerated. Mild diffuse fatty infiltration liver. Normal spleen. Normal GE junction . Normal pancreatic parenchymal enhancement. Prior cholecystectomy. Prominent common bile duct likel y physiologic postcholecystectomy measuring 7 mm. Normal caliber abdominal aorta. Mild aortic calcifi cation. Celiac and SMA are patent. Adrenal glands are normal. Normal renal parenchymal enhancement. N o hydronephrosis. Small LEFT renal cyst. Prior postoperative changes RIGHT REJI degrades images in the pelvis. Lumbar scoliosis. Mild sigmoid a nd LEFT colon constipation. No evidence of high-grade obstruction. Small amount of incidental fluid a long the RIGHT inguinal canal. Tiny fat-containing umbilical hernia. Disc space narrowing throughout the lumbar spine. CT/CT abdomen pelvis w con* [id number] IMPRESSION: 1. Diffuse thickening of the rectum extending to the rectoanal junction with s oft tissue thickening most compatible with rectal prolapse. Recommend interval follow-up with sigmoidoscopy or colonoscopy to exclude intraluminal or lesion m ass. 2. No evidence of high-grade obstruction. Mild LEFT colon and sigmoid colon co nstipation. 3. No free air or drainable fluid collections. 4. Prior cholecystectomy and hysterectomy. 5. No other acute findings Notified Luis A Bach MD at 09/23/2022 1:08 PM.
[2022-09-23 12:00] LABS: Hematocrit 44.7 % (37.0-47.0); Hemoglobin 13.7 g/dL (11.5-15.3)
[2022-09-23] MEDS: iohexol 350 mg/mL 500 mL Btl (per mL) IV (12:34)
[2022-09-23 14:46] LABS: Basophils # 0.1 10^3/uL (0.0-0.1); Basophils % 1.3 %; Eosinophils # 0.2 10^3/uL (0.0-0.8); Eosinophils % 3.1 %; Hematocrit 42.2 % (37.0-47.0); Hemoglobin 13.5 g/dL (11.5-15.3); Lymphocytes # 1.7 10^3/uL (0.8-4.8); Lymphocytes % 25.5 %; Mean Corpuscular Hemoglobin 26.8 pg (28.0-34.0); Mean Corpuscular Volume 83.9 fl (81-99); Mean Platelet Volume 10.6 fL (7.4-10.4); Monocytes # 0.4 10^3/uL (0.2-0.9); Monocytes % 6.4 %; Neutrophils # 4.25 10^3/uL (1.8-7.7); Neutrophils % 63.6 %; Nucleated Red Blood Cells % 0 %; Platelet Count 279 10^3/cmm (130-400); Red Blood Count 5.03 10^6/uL (4.1-5.3); Red Cell Distribution Width 13.4 % (12.1-15.1); White Blood Count 6.7 10^3/uL (4.0-10.0)
[2022-09-23 15:06] LABS: Lactic Sepsis W/Reflex 1.2 mmol/L (0.5-2.2)
== END 2022-09-23 18:41 | disposition home or self-care (01) ==
PROVIDERS: Emergency Provider Emergency Medicine; PCP Family Medicine
DX: K62.3 Rectal prolapse (principal); Z79.82 Long term (current) use of aspirin; Z87.891 Personal history of nicotine dependence
CPT/HCPCS: 36415; 74177; 83605; 85014; 85018; 85025; 99285; Q9967

== ENCOUNTER → 2022-12-16 12:41 | Outpatient (BNVA) | payer MEDICARE, OTHER, SELFPAY | PROVIDERS: PCP Family Medicine; Visit Provider Urology | DX: N30.20 Other chronic cystitis without hematuria (principal); N39.41 Urge incontinence | CPT/HCPCS: 81003; 99213 ==

== ENCOUNTER 2023-01-10 15:23 | Outpatient (CLI) | payer MEDICARE, OTHER, SELFPAY ==
--- NOTE | 2023-01-10 15:32 | MM_ITS ---
WS: [id number] BILATERAL 3D TOMOSYNTHESIS DIGITAL SCREENING MAMMOGRAPHY WITH CAD CLINICAL INFORMATION: SCREENING HISTORY: Chronic RIGHT breast pain and lumpy since biopsy years ago COMPARISON: January 05, 2022 TECHNIQUE: Bilateral CC and MLO views. FINDINGS: The breasts are composed of heterogeneous fibroglandular density tissue, which can limit the detectio n of small underlying mass lesions. No suspicious mass, asymmetry, calcifications, or architectural d istortion. No evidence of malignancy. Vascular calcification. Punctate and lucent centered calcificat ions. MM/[place] [id number] IMPRESSION: BI-RADS: 2-Benign FOLLOW UP: 1 Year Follow-up Recommend return to annual screening mammography.
== END 2023-01-10 15:24 | disposition home or self-care (01) ==
LOC: RAD 15:27
PROVIDERS: PCP Family Medicine; Visit Provider Family Medicine
DX: Z12.31 Encounter for screening mammogram for malignant neoplasm of breast (principal)
CPT/HCPCS: 77063; 77067

== ENCOUNTER 2023-06-07 08:08 | Outpatient (CLI) | payer MEDICARE, OTHER, SELFPAY ==
[2023-06-07 08:32] LABS: Basophils # 0.1 10^3/uL (0.0-0.1); Basophils % 1.4 %; Eosinophils # 0.1 10^3/uL (0.0-0.8); Eosinophils % 1.9 %; Hematocrit 40.7 % (36-47); Lymphocytes # 1.5 10^3/uL (0.8-4.8); Lymphocytes % 36.2 %; Mean Corpuscular HGB Conc 31.9 g/dL (30-55); Mean Corpuscular Hemoglobin 27.3 pg (27-33); Mean Corpuscular Volume 85.3 fl (85-98); Monocytes # 0.3 10^3/uL (0.2-0.9); Monocytes % 8.2 %; Neutrophils # 2.18 10^3/uL (1.8-7.7); Neutrophils % 52.3 %; Nucleated Red Blood Cells % 0 %; Platelet Count 231 10^3/cmm (157-399); Red Blood Count 4.77 10^6/uL (3.85-5.65); Red Cell Distribution Width 14.2 % (12.1-15.1); White Blood Count 4.17 10^3/uL (3.29-11.43)
[2023-06-07 09:05] LABS: Alanine Aminotransferase 18 U/L (0-33); Albumin Level 4.3 g/dL (3.5-5.2); Alkaline Phosphatase 81 U/L (35-105); Aspartate Amino Transferase 26 U/L (0-32); Blood Urea Nitrogen 10 mg/dL (8-23); Calcium 9.3 mg/dL (8.5-10.5); Carbon Dioxide 26 mmol/L (22-29); Chloride 107 mmol/L (98-107); Chol HDL Ratio 2.45 mg/dL (0.0-4.40); Cholesterol 142 mg/dL (0-200); Globulin 2.5 g/dL (1.3-4.6); Glucose 101 mg/dL (65-115); HDL Cholesterol 58 mg/dL (60-100); LDL Cholesterol Calculated 71 mg/dL (50-129); LDL HDL Ratio 1.22 RATIO (0.00-3.22); Osmolality Calculated 293 mOsm/kg (285-295); Sodium 142 mmol/L (136-145); Thyroid Stimulating Hormone 0.21 uIU/mL (0.27-4.20); Total Bilirubin 0.3 mg/dL (0.15-1.2); Total Protein 6.8 g/dL (6.6-8.7); Triglycerides 64 mg/dL (0-150)
== END 2023-06-07 08:09 | disposition home or self-care (01) ==
LOC: LAB 08:14
PROVIDERS: PCP Family Medicine; Visit Provider Family Medicine
DX: I10 Essential (primary) hypertension (principal); E78.00 Pure hypercholesterolemia, unspecified; E03.9 Hypothyroidism, unspecified; D64.9 Anemia, unspecified
CPT/HCPCS: 36415; 80053; 80061; 84443; 85025

== ENCOUNTER 2023-06-30 12:34 | Outpatient (CLI) | payer MEDICARE, OTHER, SELFPAY ==
--- NOTE | 2023-06-30 13:00 | USCV_ITS ---
[place], [place] Age: 82 Gender: F : 1940 Exam Date: 06/30/2023 13:13 Ordering Phys: Estefany Manzano MD Technologist: Hemalatha Hoang Exam Location: [facility] [place] Indication: Cardiac Murmur BP: / HR: 69 Rhythm: Sinus Technical Quality: Adequate MEASUREMENTS (Male / Female) Normal Values 2D ECHO LV Diastolic Diameter PLAX 3.7 cm 4.2 - 5.9 / 3.9 - 5.3 cm LV Systolic Diameter PLAX 2.3 cm LV Chamber Size 3.9 cm IVS Diastolic Thickness 1.4 cm 0.6 - 1.0 / 0.6 - 0.9 cm IVS Systolic Thickness 1.2 cm LVPW Diastolic Thickness 1.4 cm 0.6 - 1.0 / 0.6 - 0.9 cm LVPW Systolic Thickness 1.7 cm RV Chamber Size 3.5 cm LVOT Diameter 2.0 cm LV Ejection Fraction 2D Teich 70.4 % LV Ejection Fraction MOD 2C 52.5 % LV Ejection Fraction 2C AL 58.0 % LA Diameter 4.1 cm LA Width 2.8 cm LA Height 4.0 cm RA Width 2.8 cm RA Height 3.5 cm Aorta at Sinotubular Diameter 2.8 cm IVC Diameter 1.6 cm M-MODE Aortic Annulus Diameter 3.1 cm LA Ao Ratio MM 1.6 MV E Point Septal Separation 0.7 cm DOPPLER AV Peak Velocity 137.0 cm/s LVOT Peak Velocity 138.0 cm/s AV Area Cont Eq vti 2.6 cm squared AV Area Cont Eq pk 3.2 cm squared MV Area PHT 2.0 cm squared Mitral E to A Ratio 0.7 MV E' Velocity 37.0 cm/s Mitral E to MV E' Ratio 7.7 Mitral E to LV E' Lateral Ratio 7.5 Mitral E to LV E' Septal Ratio 7.8 TR Peak Velocity 168.0 cm/s TR Peak Gradient 11.3 mmHg TR Mean Velocity 176.1 cm/s TR Mean Gradient 13.9 mmHg TR Velocity Time Integral 68.7 cm TV Peak E Velocity 36.0 cm/s Right Atrial Pressure 3.0 mmHg Pulmonary Artery Systolic Pressu 14.3 mmHg RV Acceleration Time 0.1 s RV Ejection Time 0.3 s RV AcT/ET 0.3 FINDINGS Left Ventricle Normal left ventricular size and systolic function, EF 55 %. Moderate left ventricular hypertrophy. Grade I/IV diastolic dysfunction (abnormal relaxation filling pattern), normal to mildly elevated filling pressures. Right Ventricle The right ventricle is normal in size and function. Right Atrium The right atrium is normal in size. Left Atrium Mildly increased left atrial size. Mitral Valve No gross abnormalities noted Aortic Valve Thickened aortic valve. Trace to mild aortic valve regurgitation. Tricuspid Valve Trace to mild tricuspid valve regurgitation. estimated pulmonary peak systolic pressure 33 mmHg Pulmonic Valve Structurally normal pulmonic valve without significant stenosis. There is no pulmonic regurgitation. Pericardium No pericardial effusion. Aorta Normal ascending aorta dimension. IVC Normal inferior vena cava. CONCLUSIONS Normal left ventricular size and systolic function, EF 55 %. Moderate left ventricular hypertrophy. Grade I/IV diastolic dysfunction (abnormal relaxation filling pattern), normal to mildly elevated filling . Thickened aortic valve. Trace to mild aortic valve regurgitation. Trace to mild tricuspid valve regurgitation. estimated pulmonary peak systolic pressure 33 mmHg. There is no pericardial effusion. There are no intracardiac masses. No similar previous studies are available for comparison Dr Amber Sanders MD FACC (Electronically Signed) Final Date: 30 June 2023 16:58 S
== END 2023-06-30 12:35 | disposition home or self-care (01) ==
PROVIDERS: PCP Family Medicine; Visit Provider Family Medicine
DX: R01.1 Cardiac murmur, unspecified (principal); I51.7 Cardiomegaly; I51.89 Other ill-defined heart diseases; I35.8 Other nonrheumatic aortic valve disorders
CPT/HCPCS: 93306

== ENCOUNTER → 2023-08-03 14:04 | Outpatient (BNVA) | payer MEDICARE, OTHER, SELFPAY | PROVIDERS: PCP Family Medicine; Visit Provider Nurse Practitioner Family | DX: D48.5 Neoplasm of uncertain behavior of skin (principal); L57.8 Other skin changes due to chronic exposure to nonionizing radiation; D22.5 Melanocytic nevi of trunk; L81.4 Other melanin hyperpigmentation; L82.1 Other seborrheic keratosis | CPT/HCPCS: 69100; 99213 ==

== ENCOUNTER → 2024-04-25 11:48 | Outpatient (BNVA) | payer MEDICARE, OTHER, SELFPAY | PROVIDERS: PCP Family Medicine; Referring Provider Family Medicine; Visit Provider Specialist | DX: M25.552 Pain in left hip (principal); M25.562 Pain in left knee; G89.29 Other chronic pain; Z96.653 Presence of artificial knee joint, bilateral | CPT/HCPCS: 73560; 73565; 99214 ==

== ENCOUNTER → 2024-04-30 10:10 | Outpatient (BNVA) | payer MEDICARE, OTHER, SELFPAY | PROVIDERS: PCP Family Medicine; Referring Provider Family Medicine; Visit Provider Specialist | DX: M16.12 Unilateral primary osteoarthritis, left hip (principal); M25.552 Pain in left hip; M25.551 Pain in right hip | CPT/HCPCS: 73523; 99214 ==

== ENCOUNTER 2024-05-30 12:21 | Outpatient (RCR) | payer MEDICARE, OTHER, SELFPAY | END 2024-06-09 18:00 | disposition home or self-care (01) | LOC: SPT 12:21 | PROVIDERS: PCP Family Medicine; Visit Provider Specialist | DX: M25.561 Pain in right knee (principal); M25.562 Pain in left knee | CPT/HCPCS: 97161 ==

== ENCOUNTER 2024-09-11 09:40 | Outpatient (CLI) | payer MEDICARE, OTHER, SELFPAY ==
--- NOTE | 2024-09-11 09:45 | USCV_ITS ---
[place], [place] Age: 84 Gender: F : 1940 Exam Date: 09/11/2024 09:58 Ordering Phys: Estefany Manzano MD Technologist: IRISH Exam Location: [facility] [place] Indication: Cardiomyopathy BP: 175 / 77 HR: 66 Rhythm: Sinus Technical Quality: Adequate MEASUREMENTS (Male / Female) Normal Values 2D ECHO LV Diastolic Diameter PLAX 4.7 cm 4.2 - 5.9 / 3.9 - 5.3 cm IVS Diastolic Thickness 0.8 cm 0.6 - 1.0 / 0.6 - 0.9 cm IVS Systolic Thickness 0.9 cm LVPW Diastolic Thickness 1.4 cm 0.6 - 1.0 / 0.6 - 0.9 cm LVPW Systolic Thickness 1.4 cm LVOT Diameter 2.0 cm LV Ejection Fraction 2D Teich 77.8 % LV Ejection Fraction MOD 4C 43.2 % LV Ejection Fraction MOD 2C 72.6 % LV Ejection Fraction 2C AL 89.7 % LA Diameter 3.8 cm RA Systolic Volume 4C AL 13.9 ml RA Systolic Volume 4C MOD 14.9 ml LA Sys Volume AL 23.6 cm cubed LA Sys Volume Index AL 13.9 cm cubed/m squared Aorta at Sinotubular Diameter 2.8 cm IVC Diameter 0.8 cm M-MODE LA Ao Ratio MM 1.4 AV Cusp Separation MM 1.1 cm DOPPLER AV Peak Velocity 153.0 cm/s LVOT Peak Velocity 155.0 cm/s AV Area Cont Eq vti 3.9 cm squared AV Area Cont Eq pk 3.2 cm squared MV Area PHT 2.8 cm squared Mitral E to A Ratio 0.6 TV Peak Velocity 278.5 cm/s TR Peak Velocity 285.0 cm/s TR Peak Gradient 32.5 mmHg TR Mean Velocity 191.0 cm/s TR Mean Gradient 17.8 mmHg TR Velocity Time Integral 77.8 cm TV Peak E Velocity 48.0 cm/s FINDINGS Left Ventricle Normal left ventricular size and systolic function, EF 73%. Mild left ventricular hypertrophy. No regional wall motion abnormalities. No regional wall motion abnormalities. Right Ventricle The right ventricle is normal in size and function. Right Atrium The right atrium is normal in size. Left Atrium The left atrium is normal in size. Mitral Valve Trace mitral valve regurgitation. Aortic Valve Minimally thickened aortic valve Tricuspid Valve Estimated pulmonary artery peak systolic pressure 33 mmHg.Mild tricuspid valve regurgitation. Pulmonic Valve No gross abnormalities noted Pericardium Normal pericardium without effusion. Aorta Normal ascending aorta dimension. IVC Normal inferior vena cava. CONCLUSIONS Normal left ventricular size and systolic function, EF 73%. Mild left ventricular hypertrophy. No regional wall motion abnormalities. No regional wall motion abnormalities. Trace mitral valve regurgitation. Minimally thickened aortic valve. Mild tricuspid valve regurgitation. Estimated pulmonary artery peak systolic pressure 33 mmHg. There is no pericardial effusion. There are no intracardiac masses. No similar previous studies are available for comparison Dr Amber Sanders MD FACC (Electronically Signed) Final Date: 11 September 2024 21:12 S
== END 2024-09-11 09:41 | disposition home or self-care (01) ==
LOC: RAD 09:41
PROVIDERS: PCP Family Medicine; Visit Provider Family Medicine
DX: I35.9 Nonrheumatic aortic valve disorder, unspecified (principal)
CPT/HCPCS: 93306

== ENCOUNTER → 2025-02-13 09:42 | Outpatient (BNVA) | payer MEDICARE, SELFPAY | PROVIDERS: PCP Family Medicine | DX: R22.32 Localized swelling, mass and lump, left upper limb (principal) | CPT/HCPCS: 73110 ==

== ENCOUNTER → 2025-02-26 09:17 | Outpatient (BNVA) | payer MEDICARE, SELFPAY | PROVIDERS: PCP Family Medicine; Visit Provider Family Medicine | DX: I10 Essential (primary) hypertension (principal); E78.00 Pure hypercholesterolemia, unspecified; E03.8 Other specified hypothyroidism; Z71.1 Person with feared health complaint in whom no diagnosis is made | CPT/HCPCS: 80053; 80061; 84443; 85025 ==

== ENCOUNTER → 2025-04-01 09:27 | Outpatient (BNVA) | payer MEDICARE, SELFPAY | PROVIDERS: PCP Family Medicine; Visit Provider Family Medicine | DX: E03.8 Other specified hypothyroidism (principal); E78.00 Pure hypercholesterolemia, unspecified | CPT/HCPCS: 80053; 84439; 84443; 84481; 85025 ==

== ENCOUNTER → 2025-06-06 15:15 | Outpatient (BNVA) | payer MEDICARE, SELFPAY | PROVIDERS: PCP Family Medicine; Visit Provider Nurse Practitioner Family | DX: L81.4 Other melanin hyperpigmentation (principal); L57.8 Other skin changes due to chronic exposure to nonionizing radiation; D22.5 Melanocytic nevi of trunk; L82.1 Other seborrheic keratosis; L82.0 Inflamed seborrheic keratosis; L53.8 Other specified erythematous conditions; Z78.9 Other specified health status; R20.8 Other disturbances of skin sensation; L29.89 Other pruritus | CPT/HCPCS: 17110; 99213 ==

== ENCOUNTER 2025-06-14 11:20 | Outpatient (RCR) | payer MEDICARE, SELFPAY | END 2025-07-09 23:59 | disposition home or self-care (01) | LOC: SPT 11:20 | PROVIDERS: PCP Family Medicine; Visit Provider Family Medicine | DX: H81.10 Benign paroxysmal vertigo, unspecified ear (principal) | CPT/HCPCS: 95992; 97161 ==

== ENCOUNTER 2025-07-22 20:16 | Emergency (ER) | payer MEDICARE, OTHER, SELFPAY ==
[2025-07-22 20:17] VITALS: BP 174/120; PULSE 74; RESP 16; TEMP 36.7; O2SAT 93; BMI 20.1
[2025-07-22 21:00] VITALS: BP 186/88
--- NOTE | 2025-07-22 21:11 | XRR_ITS ---
PROCEDURE INFORMATION: Exam: XR Chest Exam date and time: 07/22/2025 9:16 PM Age: 84 years old Clinical indication: Other: Dizzy; Additional info: Dizzy, possible fever TECHNIQUE: Imaging protocol: Radiologic exam of the chest. Views: 1 view. COMPARISON: CR XR chest 2V* [id number] 10/13/2018 11:16 AM FINDINGS: Lungs: Unremarkable. No consolidation. Pleural spaces: Unremarkable. No pleural effusion. No pneumothorax. Heart/Mediastinum: Unremarkable. No cardiomegaly. Vasculature: Moderate calcifications in the aortic arch. Bones/joints: Left glenohumeral reverse arthroplasty. Hardware intact. Moderate multilevel degenerative changes of the thoracic spine. Other findings: No acute intrathoracic abnormality. XR/XR chest 1V portable [id number] IMPRESSION: No acute intrathoracic abnormality.
[2025-07-22 21:18] LABS: Glucose Urine UA Negative (Normal); Nitrate Urine Negative (Negative); Specific Gravity, Urine 1.014 (1.005-1.030)
[2025-07-22 21:25] LABS: Hematocrit 37.1 % (36-47); Hemoglobin 12.10 g/dL (11.27-16.99); Mean Corpuscular HGB Conc 32.6 g/dL (30-55); Mean Corpuscular Hemoglobin 26.9 pg (27-33); Mean Corpuscular Volume 82.4 fl (85-98); Nucleated Red Blood Cells % 0 %; Platelet Count 186 10^3/cmm (157-399); Red Blood Count 4.50 10^6/uL (3.85-5.65); White Blood Count 4.55 10^3/uL (3.29-11.43)
[2025-07-22 21:36] LABS: Troponin(5th) Baseline 13 ng/L (0-10)
--- NOTE | 2025-07-22 21:39 | ECG_ITS ---
[facility] Test Date: 2025-07-22 Pat Name: Evelyne Palmer Department: Room: Gender: Female Conference And Event Organiser: : 1940 Requested By: Maeve Negron Order Number: [id number] Merary MD: Doyle Hart M.D. Measurements Intervals [place] Rate: 70 P: 57 DE: 195 QRS: -6 QRSD: 100 T: 61 QT: 328 QTc: 356 Interpretive Statements SINUS RHYTHM NONSPECIFIC T-WAVE ABNORMALITY Compared to ECG 10/13/2018 10:48:37 T-wave abnormality now present Electronically Signed On 07-24-2025 21:06:04 CDT by Doyle Hart M.D. [id number]
[2025-07-22 21:44] LABS: Alanine Aminotransferase 26 U/L (0-33); Albumin Level 4.1 g/dL (3.5-5.2); Alkaline Phosphatase 87 U/L (35-105); Anion Gap 14.3 (5-19); Aspartate Amino Transferase 34 U/L (0-32); Blood Urea Nitrogen 10 mg/dL (8-23); Calcium 8.7 mg/dL (8.5-10.5); Carbon Dioxide 23 mmol/L (22-29); Chloride 104 mmol/L (98-107); Creatinine Clr Calc Pharmacy 38.0040; Globulin 1.7 g/dL (1.3-4.6); Glucose 90 mg/dL (65-115); NT Pro B Type Natriuretic Pept 526 pg/mL (0-450); Osmolality Calculated 285 mOsm/kg (285-295); Potassium 3.3 mmol/L (3.5-5.1); Sodium 138 mmol/L (136-145); Total Protein 5.8 g/dL (6.6-8.7)
[2025-07-22 21:47] LABS: Add Urine Microscopic? YES; UA Manual Slide Review YES; UA Slide Review UA Slide Review Perf
--- NOTE | 2025-07-22 22:27 | W.ED.GENADLT ---
HPI - General Adult General: Chief complaint: General Medical Stated complaint: hot flashes, shakes Time Seen by Provider: 07/22/25 20:19 History of Present Illness: Patient is an 84-year-old female with a past medical history of high blood pressure, thyroid disease, high cholesterol presents with a chief complaint of feeling warm and facial flushing today. Patient states that today, she was moving some items around in the garage and started to feel warm. She went inside to attempt to cool off. She then states that she had difficulty with folding her bed sheets while doing laundry and became frustrated and anxious. She states she continued to experience the feeling of warmth and felt flushed. She does admit to anxiety about possible Alzheimer's disease because she feels that for some time now she's been forgetful and has difficulty with word finding sometimes. She is not confused now and daughter states she is at baseline. She did not measure her tempertature today but has not felt like she's had a fever. She denies chills, malaise. No URI sx, chest pain, shortness of breath, syncope, fall, dizziness. She denies abd pain, n/v/d, increased urinary frequency, diarrhea, decreased appetite or poor PO intake. No bleeding per rectum. She is feeling much better now that she is here and states she feels like she's cooled off. Of note, she's quite hypertensive but reports she's been compliant with her medications. Of note, she has an upcoming appointment with a new patent prosecution paralegal in a few weeks. Related Data Home Medications ?Medication ?Instructions ?Recorded ?Confirmed ascorbic acid (vitamin C) 500 mg 1,000 mg PO DAILY 01/09/20 06/18/25 capsule cholecalciferol (vitamin D3) 50 2,000 unit PO DAILY 01/09/20 06/18/25 mcg (2,000 unit) tablet cod liver oil 1 cap PO DAILY 01/09/20 06/18/25 docusate sodium 100 mg capsule 100 mg PO BID 01/09/20 06/18/25 (Stool Softener) prenat.vits,alejandrina,[id number] 1 tab PO DAILY 01/09/20 06/18/25 amlodipine 5 mg tablet 5 mg PO DAILY 09/13/22 06/18/25 calcium carbonate 500 mg PO DAILY 09/13/22 06/18/25 fluticasone propionate 50 2 spray intranasal DAILY PRN 09/13/22 06/18/25 mcg/actuation nasal Allergy Symptoms spray,suspension polyethylene glycol 3350 17 17 g PO DAILY 09/23/22 06/18/25 gram/dose oral powder (Miralax) Previous Rx's ?Medication ?Instructions ?Recorded cephalexin 500 mg capsule 500 mg PO TID PRN UTI #90 caps 05/14/25 furosemide 20 mg tablet See Rx Instructions .Route 05/14/25 .COMPLEX #90 tabs levothyroxine 100 mcg tablet 100 mcg PO DAILY #90 tabs 05/26/25 (Euthyrox) celecoxib 200 mg capsule See Rx Instructions .Route 06/18/25 .COMPLEX #90 caps duloxetine 60 mg capsule,delayed 60 mg PO DAILY #90 caps 06/18/25 release escitalopram oxalate 10 mg tablet See Rx Instructions .Route 06/18/25 .COMPLEX #90 tabs losartan 25 mg tablet 25 mg PO DAILY #90 tabs 06/18/25 lovastatin 40 mg tablet 40 mg PO BEDTIME #90 tabs 06/18/25 Allergies Allergy/AdvReac Type Severity Reaction Status Date / Time Sulfa (Sulfonamide Allergy ALGY-Rash Verified 07/22/25 20:21 Antibiotics) PFSH ED PFSH: Medical History (Updated 07/22/25 @ 22:39 by Maeve Negron MD) Orthostatic hypotension Cardiac murmur, unspecified Hypertension, essential Generalized anxiety disorder Recurrent UTI has seen urologist: takes abx prn UTI 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; positive RPR Chronic constipation takes miralax Osteoarthritis, generalized Adult onset hypothyroidism Chronic acquired lymphedema varicose veins--has had RFA Depression, major, recurrent Hypercholesterolemia Urgency incontinence Surgical History Hx of colonoscopy 05/31 Hx of blepharoplasty bilateral Hx of varicose vein ligation bilateral RFA for varicose veins Hx of right breast biopsy benignhx History of rectal surgery rectocele repair and sacralcolpopexy for rectal prolapse Hx of right inguinal hernia repair Hx of hysterectomy cancer cells; no radiation or chemo History of bilateral knee replacement History of right hip replacement Hx of bladder repair surgery H/O cataract extraction OU S/P cholecystectomy S/P appendectomy S/P tonsillectomy H/O dilation and curettage several H/O shoulder surgery right Family History Family/Other Adopted Mother , at age 26 Bowel obstruction Father No problems noted. Social History Smoking and tobacco/nicotine status: former use of tobacco/nicotine Quit status (tobacco/nicotine): has quit using Year quit tobacco: before 1999 Alcohol intake: current Alcohol intake frequency: holidays/special occasions only Alcohol type: wine Substance/Drug Use: never Adopted: No Caregiver/support person: No Lives independently: Yes Household members: none Marital status: / Number of children: 5 Highest education level completed: GED or Equivalent Current occupational status: retired Previous occupational history: factory work Current gender identity: Female Physical Exam Narrative: EXAM NARRATIVE: Vitals were reviewed. Patient is alert and able to answer most orientation questions though she has difficulty coming up with the date. PERRL, EOMI, no facial asymmetry. Speech is clear. Patient has SpO2 of 93% on room air, no increased work of breathing and I do not appreciate any significant crackles, wheezing or rhonchi. Patient is hypertensive. +2 radial and DP pulses. No LE asymmetry or significant edema. Abd is soft, nondistended, nontender. No rash or lesions. Patient reports feeling anxious. Course Vital Signs: Vital signs: Vital Signs Temperature 98.1 F 07/22/25 20:17 Pulse Rate 74 07/22/25 20:17 Respiratory Rate 16 07/22/25 20:17 Blood Pressure 186/88 07/22/25 21:00 Pulse Oximetry 93 07/22/25 20:17 Oxygen Delivery Me thod Room Air 07/22/25 20:17 MDM - General Adult Medical Decision Making Patient is an 84-year-old female with a chief complaint of feeling warm today and facial flushing. She also reports significant anxiety today, has specially illness anxiety as she is concerned she may be developing dementia. Patient also reports frustration while folding laundry. Patient is feeling significantly improved now that she is in the emergency department and states that she has cooled off. Differential diagnosis includes but is not limited to, fever due to underlying infection such as pneumonia or urinary tract infection or skin infection, palpitations, cardiac arrhythmia, hypertensive emergency versus asymptomatic hypertension, panic attack, anxiety, other. On exam, patient is hypertensive however with observation and treatment for anxiety, her systolic blood pressure decreases to 165. Patient was screened with basic lab work including CBC, CMP, troponin, BNP, UKA and EKG. She has a normal white blood cell count and is not anemic. She does not have any actionable electrolyte abnormalities. Her potassium is mildly decreased, will day camp counselor her to increase p.o. potassium via food. Patient's troponin is a bit higher than upper limit but she has no chest pain, EKG. does not show STEMI. Her BNP is also mildly elevated but this is not abnormal for her age group. UA is not consistent w/UTI and she denies urinary sx. On reassessment, she is feeling much improved. At this time, she is comfortable going home; I feel she is stable for discharge as I do not believe she is experiencing a medical emergency. Patient and daughter were counseled on supportive care at home, given return precautions and patient was discharged with recommendation for outpatient follow-up with her primary care physician next week. Lab Data 07/22/25 20:32 07/22/25 20:32 Radiology Impressions Chest X-Ray 07/22/25 21:11 IMPRESSION: No acute intrathoracic abnormality. Laboratory Results WBC 4.55 10^3/uL (3.29-11.43) 07/22/25 20:32 RBC 4.50 10^6/uL (3.85-5.65) 07/22/25 20: Hgb 12.10 g/dL (11.27-16.99) 07/22/25 20:32 Hct 37.1 % (36-47) 07/22/25 20:32 MCV 82.4 fl (85-98) L 07/22/25 20: MCH 26.9 pg (27-33) L 07/22/25 20: MCHC 32.6 g/dL (30-55) 07/22/25 20:32 RDW 13.3 % (12.1-15.1) 07/22/25 20:32 Plt Count 186 10^3/cmm (157-399) 07/22/25 20: MPV 11.2 fL (7.4-10.4) H 07/22/25 20:32 Neut % (Auto) 47.0 % 07/22/25 20:32 Lymph % (Auto) 40.7 % 07/22/25 20:32 [place] % (Auto) 9.9 % 07/22/25 20:32 Eos % (Auto) 1.5 % 07/22/25 20:32 Baso % (Auto) 0.7 % 07/22/25: Neut # (Auto) 2.14 10^3/uL (1.8-7.7) 07/22/25 20: Lymph # (Auto) 1.9 10^3/uL (0.8-4.8) 07/22/25 20: [place] # (Auto) 0.5 10^3/uL (0.2-0.9) 07/22/25: Eos # (Auto) 0.1 10^3/uL (0.0-0.8) 07/22/25: Baso # (Auto) 0.0 10^3/uL (0.0-0.1) 07/22/25 20: Nucleated RBC % (auto) 0 % 07/22/25: Nucleated RBCs # 0.0 /100WBC 07/22/25 20:32 Sodium 138 mmol/L (136-145) 07/22/25 20: Potassium 3.3 mmol/L (3.5-5.1) L 07/22/25 20: Chloride 104 mmol/L (98-107) 07/22/25: Carbon Dioxide 23 mmol/L (22-29) 07/22/25 20:32 Anion Gap 14.3 (5-19) 07/22/25 20:32 BUN 10 mg/dL (8-23) 07/22/25 20: Creatinine 0.5 mg/dL (0.5-0.9) 07/22/25 20:32 GFR Calculation Not Reportable 07/22/25: Glucose 90 mg/dL (65-115) 07/22/25 20:32 Calculated Osmolality 285 mOsm/kg (285-295) 07/22/25 20: Calcium 8.7 mg/dL (8.5-10.5) 07/22/25 20:32 Total Bilirubin 0.4 mg/dL (0.15-1.2) 07/22/25 20:32 AST 34 U/L (0-32) H 07/22/25 20:32 ALT 26 U/L (0-33) 07/22/25 20:32 Alkaline Phosphatase 87 U/L (35-105) 07/22/25 20:32 Troponin T Baseline 13 ng/L (0-10) H 07/22/25 20:32 NT-Pro-B Natriuret Pep 526 pg/mL (0-450) H 07/22/25 20:32 Total Protein 5.8 g/dL (6.6-8.7) L 07/22/25 20:32 Albumin 4.1 g/dL (3.5-5.2) 07/22/25 20: Globulin 1.7 g/dL (1.3-4.6) 07/22/25 20:32 Urine Color Yellow (Yellow) 07/22/25 20:48 Urine Appearance Clear (CLEAR) 07/22/25 20:48 Urine pH 7.5 (5-7) 07/22/25 20:48 Ur Specific [place] 1.014 (1.005-1.030) 07/22/25 20:48 Urine Protein Negative (Negative) 07/22/25 20:48 Urine Glucose (UA) Negative (Normal) 07/22/25 20:48 Urine Ketones Negative (Negative) 07/22/25 20:48 Urine Blood Negative (Negative) 07/22/25 20:48 Urine Nitrate Negative (Negative) 07/22/25 20:48 Urine Bilirubin Negative (Negative) 07/22/25 20:48 Urine Urobilinogen 1.0 mg/dL (Negative) 07/22/25 20:48 Ur Leukocyte Esterase Trace (Negative) A 07/22/25 20:48 Urine RBC 0-4 /hpf (0-2) H 07/22/25 20:48 Urine WBC 5-10 /hpf (0-5) H 07/22/25 20:48 Ur Squamous Epith Cells 0-4 /hpf (0-5) H 07/22/25 20:48 Amorphous Sediment Not Reportable 07/22/25 20:48 Urine Bacteria Trace /hpf (NONE) 07/22/25 20:48 All radiology interpretation(s) finalized by discharge Discharge Plan Discharge Patient Disposition: Home Clinical Impression: Hot flashes, Anxiety about health Condition: Stable Prescriptions: No Action docusate sodium [Stool Softener] 100 mg capsule 100 mg PO BID cod liver oil Capsule 1 cap PO DAILY prenat.vits,alejandrina,[id number] Tablet 1 tab PO DAILY cholecalciferol (vitamin D3) 2,000 unit tablet 2,000 unit PO DAILY ascorbic acid (vitamin C) 500 mg capsule 1,000 mg PO DAILY escitalopram oxalate 10 mg tablet See Rx Instructions .ROUTE .COMPLEX Qty: 90 0RF Dose Instruction: TAKE 1 TABLET BY MOUTH EVERY DAY Rx Instructions: taking 0.5 tab daily celecoxib 200 mg capsule See Rx Instructions .ROUTE .COMPLEX Qty: 90 1RF Dose Instruction: TAKE 1 CAPSULE BY MOUTH DAILY. STOP NAPROXEN Rx Instructions: TAKE 1 CAPSULE BY MOUTH DAILY. STOP NAPROXEN duloxetine 60 mg capsule,delayed release(DR/EC) 60 mg PO DAILY Qty: 90 3RF losartan 25 mg tablet 25 mg PO DAILY Qty: 90 1RF lovastatin 40 mg tablet 40 mg PO BEDTIME Qty: 90 1RF cephalexin 500 mg capsule 500 mg PO TID PRN (Reason: UTI) Qty: 90 3RF furosemide 20 mg tablet See Rx Instructions .ROUTE .COMPLEX Qty: 90 1RF Dose Instruction: TAKE 1 TABLET BY MOUTH EVERY DAY Rx Instructions: TAKE 1 TABLET BY MOUTH EVERY DAY levothyroxine [Euthyrox] 100 mcg tablet 100 mcg PO DAILY Qty: 90 1RF amlodipine 5 mg tablet 5 mg PO DAILY calcium carbonate [Calcium 500] 500 mg calcium (1,250 mg) Tablet 500 mg PO DAILY fluticasone propionate 50 mcg/actuation spray,suspension 2 spray INTRANASAL DAILY PRN (Reason: Allergy Symptoms) Miralax 17 gram/dose Powder 17 g PO DAILY Discharge Orders: Discharge ED (Routine); Ordered 07/22/25 Ordered By: Maeve Negron Referrals: Petrona Harvey MD [Primary Care Provider, Family Practice] Patient Instructions: Opioid Safety, Pain Management, Patient Portal & Emma Instructions, Anxiolysis in Adults (ED) Activity Restrictions/Additional Instructions: Please continue to monitor your condition closely at home. If your condition worsens or additional concerns arise, please return to the emergency department for reassessment. Continue to monitor for fever, chest pain, shortness of breath, dizziness, palpitations or any other concerning symptoms. Please follow-up with your primary care physician within 1 week. Print Language: Nepali Coding Level of Care Code ED Teacher Dancing for Alexandra Rodriguez
[2025-07-22 22:30] VITALS: BP 168/82; PULSE 75; O2SAT 96
[2025-07-22 22:56] VITALS: BP 166/75; PULSE 75; O2SAT 94
== END 2025-07-22 22:58 | disposition home or self-care (01) ==
PROVIDERS: Emergency Provider Emergency Medicine; PCP Family Medicine
DX: R23.2 Flushing (principal); F41.8 Other specified anxiety disorders; Z87.891 Personal history of nicotine dependence; I10 Essential (primary) hypertension
CPT/HCPCS: 71045; 80053; 81001; 83880; 84484; 85025; 93005; 99285; J9999

== ENCOUNTER → 2025-08-12 12:56 | Outpatient (BNVA) | payer MEDICARE, OTHER, SELFPAY | PROVIDERS: PCP Family Medicine; Referring Provider Family Medicine; Visit Provider Internal Medicine Cardiovascular Disease | DX: R07.9 Chest pain, unspecified (principal) | CPT/HCPCS: 93005 ==